=== PATIENT | male | born 1980 | race Two or more races ===

== ENCOUNTER 2020-05-03 16:36 | Inpatient (IN) | payer SELFPAY ==
[2020-05-03 17:50] LABS: HEMOGLOBIN A1C 11.1 % (4.5-6.2)
--- NOTE | 2020-05-03 18:00 | EDM.PDOC ---
ED HPI GENERAL MEDICAL PROBLEM - General Chief Complaint: General Stated Complaint: FEELS WEAK Time Seen by Provider: 05/03/20 17:30 Source of Information: Reports: Patient, Provider, Other (Bronc Buster) History Limitations: Reports: Language Barrier - History of Present Illness INITIAL COMMENTS - FREE TEXT/NARRATIVE: 39-year-old male who went through Covid infection 1 month ago, for several weeks has been weak, thirsty, urinating a lot and losing weight. He went into the clinic for an evaluation today and some labs were drawn. He was then sent home, and then called the be told to go to the emergency room because his glucose was high. He has also had some chronic mild intermittent abdominal discomfort. No fevers or chills, no shortness of breath. Onset: Gradual Duration: Week(s): (Symptoms have been for several weeks) Associated Symptoms: Reports: Malaise, Weakness, Other (Polyuria, polydipsia). Denies: Chest Pain - Related Data Allergies Allergy/AdvReac Type Severity Reaction Status Date / Time No Known Allergies Allergy Verified 05/03/20 17:15 Home Meds: Home Meds NK [No Known Home Meds] 05/03/20 [History] Past Medical History - Past Health History Medical/Surgical History: Denies Medical/Surgical History - Infectious Disease History Infectious Disease History: Reports: Other (See Below) Other Infectious Disease History: unknown Social & Family History - Tobacco Use Tobacco Use Status *Q: Never Tobacco User - Recreational Drug Use Recreational Drug Use: No ED ROS GENERAL - Review of Systems Review Of Systems: See Below Constitutional: Reports: Malaise, Weight Loss. Denies: Fever, Chills Respiratory: Denies: Shortness of Breath GI/Abdominal: Reports: Abdominal Pain : Reports: Frequency Skin: Reports: No Symptoms Neurological: Denies: Headache ED EXAM, GENERAL - Physical Exam Exam: See Below Exam Limited By: No Limitations General Appearance: Alert, No Apparent Distress Head: Atraumatic Respiratory/Chest: No Respiratory Distress, Lungs Clear Cardiovascular: Regular Rate, Rhythm GI/Abdominal: Soft, Tender (Does react with some tenderness to palpation diffusely across the abdomen but no significant guarding) Extremities: No: Pedal Edema Neurological: Alert, Oriented Psychiatric: Flat Affect Skin Exam: Warm, Dry Course - Vital Signs Last Recorded V/S: Last Vital Signs Temp 100.0 F 05/05/20 03:00 Pulse 67 05/05/20 03:00 Resp 18 05/05/20 03:00 BP 113/70 05/05/20 03:00 Pulse Ox 98 05/05/20 03:00 - Orders/Labs/Meds Orders: Medication Orders Acetaminophen (Tylenol) 650 mg PO Q4H PRN PRN Reason: Pain (Mild 1-3)/fever Dextrose/Water (Dextrose 50% In Water) 50 ml IVPUSH ASDIRECTED PRN PRN Reason: Hypoglycemia Glipizide (Glucotrol) 10 mg PO BIDAC [facility] Last Admin: 05/04/20 17:42 Dose: 10 mg Documented by: JOANIE Glucagon (Glucagen) 1 mg IM ASDIRECTED PRN PRN Reason: Hypoglycemia Glucagon (Glucagen) 1 mg IM ASDIRECTED PRN PRN Reason: Hypoglycemia Insulin Human Lispro (Humalog) 0 unit SUBCUT QIDACANDBED [facility]; Protocol Last Admin: 05/04/20 21:45 Dose: 9 units Documented by: BUCK Cosigned by: YOUSUF Admin: 05/04/20 17:42 Dose: 9 units Documented by: JOANIE Cosigned by: JHOANA Admin: 05/04/20 12:05 Dose: 15 units Documented by: JOANIE Cosigned by: LUIS ARMANDO Magnesium Hydroxide (Milk Of Magnesia) 30 ml PO Q12H PRN PRN Reason: Constipation Melatonin (Melatonin) 9 mg PO BEDTIME PRN PRN Reason: Sleep [facility] Last Admin: 05/04/20 17:41 Dose: 1,000 mg Documented by: JOANIE Ondansetron HCl (Zofran) 4 mg IV Q6H PRN PRN Reason: Nausea/Vomiting Ondansetron HCl (Zofran Odt) 4 mg PO Q6H PRN PRN Reason: Nausea able to take PO Senna/Docusate Sodium (Senna Plus) 1 tab PO BID PRN PRN Reason: Constipation Labs: Laboratory Tests 05/03/20 Range/Units 17:24 Hemoglobin A1c 11.1 H (4.5-6.2) % Meds: Medications Generic Name Dose Route Start Last Admin Trade Name Freq PRN Reason Stop Dose Admin Acetaminophen 650 mg 05/03/20 19:19 Tylenol PO Q4H PRN Pain (Mild 1-3)/fever Dextrose/Water 50 ml 05/03/20 21:22 Dextrose 50% In Water IVPUSH ASDIRECTED PRN Hypoglycemia Glipizide 10 mg 05/04/20 17:00 05/04/20 17:42 Glucotrol PO 10 mg BIDAC MEGHANA Administration Glucagon 1 mg 05/03/20 21:22 Glucagen IM ASDIRECTED PRN Hypoglycemia Glucagon 1 mg 05/04/20 06:11 Glucagen IM ASDIRECTED PRN Hypoglycemia Insulin Human Lispro 0 unit 05/04/20 17:00 05/04/20 21:45 Humalog SUBCUT 9 units QIDACANDBED MEGHANA Administration Protocol Magnesium Hydroxide 30 ml 05/03/20 19:19 Milk Of Magnesia PO Q12H PRN Constipation Melatonin 9 mg 05/03/20 19:19 Melatonin PO BEDTIME PRN Sleep Metformin HCl 1,000 mg 05/04/20 17:00 05/04/20 17:41 Glucophage PO 1,000 mg BIDMEALS MEGHANA Administration Ondansetron HCl 4 mg 05/03/20 19:19 Zofran IV Q6H PRN Nausea/Vomiting Ondansetron HCl 4 mg 05/03/20 19:19 Zofran Odt PO Q6H PRN Nausea able to take PO Senna/Docusate Sodium 1 tab 05/03/20 19:19 Senna Plus PO BID PRN Constipation Discontinued Medications Generic Name Dose Route Start Last Admin Trade Name Freq PRN Reason Stop Dose Admin Dextrose/Water 50 ml 05/03/20 18:10 Dextrose 50% In Water IVPUSH ASDIRECTED PRN Hypoglycemia Glucagon 1 mg 05/03/20 18:10 Glucagen IM ASDIRECTED PRN Hypoglycemia Sodium Chloride 1,000 mls @ 999 mls/hr 05/03/20 18:15 05/03/20 18:29 Normal Saline IV 05/03/20 19:16 999 mls/hr ASDIRECTED MEGHANA Administration Sodium Chloride 1,000 mls @ 100 mls/hr 05/03/20 19:19 05/04/20 02:35 Normal Saline IV 100 mls/hr ASDIRECTED MEGHANA Administration Insulin Glargine 14 units 05/03/20 21:00 05/03/20 21:39 Lantus Solostar SUBCUT 14 units BEDTIME MEGHANA Administration Insulin Human Lispro 10 unit 05/03/20 18:10 05/03/20 18:51 Humalog SUBCUT 05/03/20 18:11 10 units ONETIME ONE Administration Insulin Human Lispro 0 unit 05/03/20 20:00 05/04/20 13:53 Humalog SUBCUT Not Given QIDACANDBED [facility] Protocol Insulin Human Lispro 8 unit 05/03/20 21:22 05/03/20 21:40 Humalog SUBCUT 05/03/20 21:23 8 units ONETIME ONE Administration Insulin Human Lispro 10 unit 05/04/20 06:11 05/04/20 06:46 Humalog SUBCUT 05/04/20 06:12 10 units ONETIME ONE Administration Metformin HCl 500 mg 05/04/20 08:00 05/04/20 09:36 Glucophage PO 500 mg BIDMEALS [facility] Administration - Re-Assessments/Exams Free Text/Narrative Re-Assessment/Exam: 05/03/20 17:58 Reviewed the clinic records, hemoglobin A1c was added after talking with the hospitalist service. This returned at 11.1, with his glucose being at 711 I think hospitalization for 1 to 2 days for stabilization and further evaluation and education is necessary. Dr. Vazquez of the hospitalist service evaluated the patient for admission. Departure - Departure Time of Disposition: 19:49 Disposition: Admitted As Inpatient 65 Clinical Impression: New onset type 2 diabetes mellitus - Discharge Information Sepsis Event Note (ED) - Evaluation Sepsis Screening Result: No Definite Risk
[2020-05-03] MEDS ORDERED: Glucagon,Human Recombinant 1 MG Vial IM PRN ×2 (18:10→21:22)
[2020-05-03] MEDS ORDERED: 50% Dextrose in Water 50 ML Syringe IVPUSH PRN ×2 (18:10→21:22)
[2020-05-03] MEDS ORDERED: Insulin Lispro 100 Unit/ML 3 ML KwikPen SUBCUT ONE ×2 (18:10→21:22)
[2020-05-03] MEDS ORDERED: Sodium Chloride 0.9% 1,000 ML IV SCH ×2 (18:15→19:19)
--- NOTE | 2020-05-03 18:26 | PCM.HP.2 ---
H&P History of Present Illness - General Date of Service: 05/03/20 Admit Problem/Dx: Admission Diagnosis/Problem Admission Diagnosis/Problem Hyperglycemia without ketosis Source of Information: Professor Of Engineering, Provider History Limitations: Reports: Language Barrier - History of Present Illness Initial Comments - Free Text/Narative: CC: sent from clinic HPI: Deny was sent to the emergency room by Dr. Armas from the clinic. She had seen him earlier in the day for weight loss, polyuria and polydipsia. He went home after the visit but laboratory studies showed a blood glucose greater than 700. He is interviewed with the help of a friend who is interpreting. He reports about 6 weeks of progressive weight loss, polyuria and polydipsia. He has been fatigued. Symptoms have progressed steadily over that time period. He does have an appetite but sometimes gets nauseated after he eats. He reports some mild left upper quadrant abdominal pain that is only present when he presses on his abdomen. There is no change with food. This is an achy pain. He has not tried anything to make it better. He did have a Covid infection just prior to onset of symptoms but has recovered from the Covid. No complaints of shortness of breath, chest pain or change in bowel habits. There is no family history of diabetes. He was healthy prior to his Covid infection. Work-up in the clinic revealed a creatinine of 1.5, normal potassium and sodium. Blood sugar was more than 700. His hemoglobin A1c is greater than 11. He will be admitted for management of new onset diabetes with significant symptoms and hyperglycemia. - Related Data Allergies/Adverse Reactions: Allergies Allergy/AdvReac Type Severity Reaction Status Date / Time No Known Allergies Allergy Verified 05/03/20 17:15 Home Medications: Home Meds NK [No Known Home Meds] 05/03/20 [History] Past Medical History - Past Health History Medical/Surgical History: Denies Medical/Surgical History - Infectious Disease History Infectious Disease History: Reports: Other (See Below) Other Infectious Disease History: unknown Social & Family History - Family History Endocrine/Metabolic: Denies: Diabetes, type II - Tobacco Use Tobacco Use Status *Q: Never Tobacco User - Alcohol Use Alcohol Use History: No - Recreational Drug Use Recreational Drug Use: No H&P Review of Systems - Review of Systems: Review Of Systems: See Below Free Text/Narrative: A complete 12 point review of systems was obtained. Pertinent positives and ne gatives are noted in the history of present illness. All other systems were reviewed and were negative except as noted. Obtained through his per diem interpreter friend. Exam - Exam Exam: See Below - Vital Signs Vital Signs: Last Vital Signs Temp 36.4 C 05/03/20 17:08 Pulse 69 05/03/20 17:08 Resp 16 05/03/20 17:08 BP 127/88 05/03/20 17:08 Pulse Ox 97 05/03/20 17:08 Weight: 70.3 kg - Exam Quality Assessment: No: Supplemental Oxygen General: Alert, Cooperative. No: Mild Distress HEENT: Conjunctiva Clear. No: Mucosa Moist & [place] (dry), Scleral Icterus Neck: Supple, Trachea Midline Lungs: Clear to Auscultation, Normal Respiratory Effort Cardiovascular: Regular Rate, Regular Rhythm. No: Systolic Murmur GI/Abdominal Exam: Normal Bowel Sounds, Soft, No Distention, Tender (mild LUQ). No: Guarding Back Exam: Normal Inspection, Full Range of Motion Extremities: No Pedal Edema. No: Increased Warmth Peripheral Pulses: 2+: Dorsalis Pedis (L), Dorsalis Pedis (R) Skin: Warm, Dry. No: Rash Neuro Extensive - Mental Status: Alert, Nl Response to Commands Neuro Extensive - Motor, Sensory, Reflexes: No: Dysarthria, Abnormal Motor, Tremor Psychiatric: Alert, Normal Affect - Patient Data Lab Results Last 24 hrs: Laboratory Results - last 24 hr 05/03/20 Range/Units 17:24 Hemoglobin A1c 11.1 H (4.5-6.2) % Sepsis Event Note - Evaluation Sepsis Screening Result: No Definite Risk - Focused Exam Vital Signs: Vital Signs Temp Pulse Resp BP Pulse Ox 05/03/20 17:08 36.4 C 69 16 127/88 97 *Q Meaningful Use (ADM) - VTE Risk Assess *Q Each Risk Factor Represents 1 Point: None Total Score 1 Point Risk Factors: 0 Each Risk Factor Represents 2 Points: None Total Score 2 Point Risk Factors: 0 Each Risk Factor Represents 3 Points: None Total Score 3 Point Risk Factors: 0 Each Risk Factor Represents 5 Points: None Total Score 5 Point Risk Factors: 0 Venous Thromboembolism Risk Factor Score *Q: 0 - Problem List (1) New onset type 2 diabetes mellitus SNOMED Code(s): 64325829 ICD Code: E11.9 - TYPE 2 DIABETES MELLITUS WITHOUT COMPLICATIONS Status: Acute Current Visit: Yes (2) Acute kidney injury SNOMED Code(s): 41286699, 69183657 ICD Code: N17.9 - ACUTE KIDNEY FAILURE, UNSPECIFIED Status: Acute Current Visit: Yes Problem List Initiated/Reviewed/Updated: Yes Orders Last 24hrs: Active Orders 24 hr Category Date Time Status Patient Status Manage Transfer [TRANSFER] Routine ADT 05/03/20 18:19 Ordered Dextrose 50% in Water Med 05/03/20 18:10 Active 50 ml IVPUSH ASDIRECTED PRN Glucagon,Human Recombinant [GlucaGen] Med 05/03/20 18:10 Active 1 mg IM ASDIRECTED PRN Sodium Chloride 0.9% [Normal Saline] 1,000 ml Med 05/03/20 18:15 Active IV ASDIRECTED Resuscitation Status Routine Resus Stat 05/03/20 18:20 Ordered Medication Orders Dextrose/Water (Dextrose 50% In Water) 50 ml IVPUSH ASDIRECTED PRN PRN Reason: Hypoglycemia Glucagon (Glucagen) 1 mg IM ASDIRECTED PRN PRN Reason: Hypoglycemia Sodium Chloride (Normal Saline) 1,000 mls @ 999 mls/hr IV ASDIRECTED [facility]NA Stop: 05/03/20 19:16 Assessment/Plan Comment:: ASSESSMENT AND PLAN - New onset diabetes mellitus-suspect type 2 diabetes with progression over the last several weeks. No family history of diabetes. Current manifestations include fatigue, polyuria, polydipsia and weight loss. Thyroid studies are pending from the clinic. Hemoglobin A1c is greater than 11 suggesting he would benefit from early initiation of insulin. -10 units of short acting insulin now -Start 14 units of long-acting insulin tonight 0.2 (units/kg) -Medium dose sliding scale until blood sugars are closer to normal -Accu-Cheks 4 times daily -I anticipate outpatient diabetic education since it is the weekend -Patient did receive [place]-language diabetes information to review tonight Acute kidney injury-creatinine of 1.5 and although there is no baseline I would anticipate his baseline creatinine is probably closer to 0.6 or 0.7. I suspect this is related to intravascular volume depletion. -1 L of IV fluids now and gentle fluids overnight -Recheck labs in the morning Maintenance issues - - DVT prophylaxis -mechanical - GI prophylaxis -not indicated - Nutrition -consistent carbohydrates - Merino catheter -not indicated CODE STATUS -full code Admission justification -this patient will be admitted for inpatient services and is medically appropriate meeting medical necessity for inpatient admission as outlined in my documentation. I reasonably expect the patient will require inpatient services that span a period time over 2 midnights. I reasonably expect this patient to be discharged or transferred within 96 hours after admission to the [facility]. Disposition -I would anticipate discharge home after the hospital stay Primary care physician -Dr. Nathalie Vazquez M.D. - Mortality Measure Prognosis:: Good
[2020-05-03] MEDS ORDERED: Melatonin 3 MG Tab PO PRN (19:19)
[2020-05-03] MEDS ORDERED: Ondansetron 4 MG/2 ML SDV IV PRN (19:19)
[2020-05-03] MEDS ORDERED: Magnesium Hydroxide 400 MG/5 ML Susp 30 ML Cup PO PRN (19:19)
[2020-05-03] MEDS ORDERED: Acetaminophen 325 MG Tab PO PRN (19:19)
[2020-05-03] MEDS ORDERED: Ondansetron 4 MG Tab.DIS PO PRN (19:19)
[2020-05-03] MEDS ORDERED: Insulin Glargine,Human Rec. Analog 100 Units/ML 3 ML Pen SUBCUT SCH (21:00)
[2020-05-03] MEDS: Insulin Lispro 100 Unit/ML 3 ML KwikPen SUBCUT SCH (21:23)
[2020-05-04] MEDS ORDERED: Glucagon,Human Recombinant 1 MG Vial IM PRN (06:11)
[2020-05-04] MEDS ORDERED: Insulin Lispro 100 Unit/ML 3 ML KwikPen SUBCUT ONE (06:11)
[2020-05-04] MEDS ORDERED: metFORMIN 500 MG Tab PO SCH (08:00)
[2020-05-04] MEDS: Insulin Lispro 100 Unit/ML 3 ML KwikPen SUBCUT SCH ×5 (09:36→21:45)
--- NOTE | 2020-05-04 11:27 | PCM.PN ---
- General Info Date of Service: 05/04/20 Subjective Update: There were no acute events overnight. Blood sugars remain quite elevated though they are improving. Patient was interviewed through a professional setter machine today. He reports that his upper abdominal pain has improved from yesterday. He was able to eat breakfast without nausea today. We reviewed his diagnosis of diabetes as well as the medications were currently using to lower his blood sugar. The patient does not currently have health insurance so we discussed inexpensive but suboptimal treatment versus more intensive but also more expensive treatment including insulin therapy. The patient is interested in the inexpensive option at this time because of his lack of health insurance. Functional Status: Reports: Pain Controlled, Tolerating Diet - Review of Systems General: Denies: Fever - Patient Data Vitals - Most Recent: Last Vital Signs Temp 36.7 C 05/04/20 10:25 Pulse 72 05/04/20 10:25 Resp 18 05/04/20 10:25 BP 118/74 05/04/20 10:25 Pulse Ox 95 05/04/20 10:25 Weight - Most Recent: 70.76 kg I&O - Last 24 Hours: Intake & Output 05/03/20 05/04/20 05/04/20 22:59 06:59 14:59 Intake Total 450 720 Balance 450 720 Lab Results Last 24 Hours: Laboratory Results - last 24 hr 05/03/20 05/03/20 05/04/20 Range/Units 17:24 21:00 04:10 Sodium 140 (140-148) mmol/L Potassium 4.3 (3.6-5.2) mmol/L Chloride 105 (100-108) mmol/L Carbon Dioxide 25 (21-32) mmol/L Anion Gap 10.0 (5.0-14.0) mmol/L BUN 11 (7-18) mg/dL Creatinine 1.0 (0.8-1.3) mg/dL Est Cr Clr Drug Dosing 79.03 mL/min Estimated GFR (MDRD) > 60 (>60) Glucose 480 H* (74-106) mg/dL POC Glucose 451 H (74-106) MG/DL Hemoglobin A1c 11.1 H (4.5-6.2) % Calcium 8.1 L (8.5-10.1) mg/dL Magnesium 2.0 (1.8-2.4) mg/dL 05/04/20 Range/Units 07:30 Sodium (140-148) mmol/L Potassium (3.6-5.2) mmol/L Chloride (100-108) mmol/L Carbon Dioxide (21-32) mmol/L Anion Gap (5.0-14.0) mmol/L BUN (7-18) mg/dL Creatinine (0.8-1.3) mg/dL Est Cr Clr Drug Dosing mL/min Estimated GFR (MDRD) (>60) Glucose (74-106) mg/dL POC Glucose 368 H (74-106) MG/DL Hemoglobin A1c (4.5-6.2) % Calcium (8.5-10.1) mg/dL Magnesium (1.8-2.4) mg/dL Med Orders - Current: Current Medications Acetaminophen (Tylenol) 650 mg PO Q4H PRN PRN Reason: Pain (Mild 1-3)/fever Dextrose/Water (Dextrose 50% In Water) 50 ml IVPUSH ASDIRECTED PRN PRN Reason: Hypoglycemia Glipizide (Glucotrol) 10 mg PO BIDAC [facility] Glucagon (Glucagen) 1 mg IM ASDIRECTED PRN PRN Reason: Hypoglycemia Glucagon (Glucagen) 1 mg IM ASDIRECTED PRN PRN Reason: Hypoglycemia Insulin Human Lispro (Humalog) 0 unit SUBCUT QIDACANDBED [facility]; Protocol Magnesium Hydroxide (Milk Of Magnesia) 30 ml PO Q12H PRN PRN Reason: Constipation Melatonin (Melatonin) 9 mg PO BEDTIME PRN PRN Reason: Sleep Metformin HCl (Glucophage) 1,000 mg PO BIDMEALS [facility] Ondansetron HCl (Zofran) 4 mg IV Q6H PRN PRN Reason: Nausea/Vomiting Ondansetron HCl (Zofran Odt) 4 mg PO Q6H PRN PRN Reason: Nausea able to take PO Senna/Docusate Sodium (Senna Plus) 1 tab PO BID PRN PRN Reason: Constipation Discontinued Medications Dextrose/Water (Dextrose 50% In Water) 50 ml IVPUSH ASDIRECTED PRN PRN Reason: Hypoglycemia Glucagon (Glucagen) 1 mg IM ASDIRECTED PRN PRN Reason: Hypoglycemia Sodium Chloride (Normal Saline) 1,000 mls @ 999 mls/hr IV ASDIRECTED [facility] Stop: 05/03/20 19:16 Last Admin: 05/03/20 18:29 Dose: 999 mls/hr Documented by: Sodium Chloride (Normal Saline) 1,000 mls @ 100 mls/hr IV ASDIRECTED [facility] Last Admin: 05/04/20 02:35 Dose: 100 mls/hr Documented by: Insulin Glargine (Lantus Solostar) 14 units SUBCUT BEDTIME [facility] Last Admin: 05/03/20 21:39 Dose: 14 units Documented by: Insulin Human Lispro (Humalog) 10 unit SUBCUT ONETIME ONE Stop: 05/03/20 18:11 Last Admin: 05/03/20 18:51 Dose: 10 units Documented by: Insulin Human Lispro (Humalog) 0 unit SUBCUT QIDACANDBED [facility]; Protocol Last Admin: 05/04/20 09:36 Dose: 10 units Documented by: Insulin Human Lispro (Humalog) 8 unit SUBCUT ONETIME ONE Stop: 05/03/20 21:23 Last Admin: 05/03/20 21:40 Dose: 8 units Documented by: Insulin Human Lispro (Humalog) 10 unit SUBCUT ONETIME ONE Stop: 05/04/20 06:12 Last Admin: 05/04/20 06:46 Dose: 10 units Documented by: Metformin HCl (Glucophage) 500 mg PO BIDMEALS [facility] Last Admin: 05/04/20 09:36 Dose: 500 mg Documented by: - Exam Quality Assessment: No: Supplemental Oxygen General: Alert, Cooperative, No Acute Distress Lungs: Normal Respiratory Effort GI/Abdominal Exam: Soft, No Distention Extremities: No Pedal Edema Psy/Mental Status: Alert, Normal Affect Sepsis Event Note - Evaluation Sepsis Screening Result: No Definite Risk - Focused Exam Vital Signs: Vital Signs Temp Pulse Resp BP Pulse Ox 05/04/20 10:25 36.7 C 72 18 118/74 95 05/04/20 07:00 37.2 C 61 18 122/72 95 05/04/20 02:47 36.8 C 66 16 122/80 99 - Problem List & Annotations (1) New onset type 2 diabetes mellitus SNOMED Code(s): 58808835 Code(s): E11.9 - TYPE 2 DIABETES MELLITUS WITHOUT COMPLICATIONS Status: Acute Current Visit: Yes (2) Acute kidney injury SNOMED Code(s): 08979643, 83015536 Code(s): N17.9 - ACUTE KIDNEY FAILURE, UNSPECIFIED Status: Acute Current Visit: Yes - Problem List Review Problem List Initiated/Reviewed/Updated: Yes - My Orders Last 24 Hours: My Active Orders 05/03/20 Dinner Consistent Carbohydrate Diet [DIET] 05/03/20 18:20 Resuscitation Status Routine 05/03/20 19:19 Acetaminophen [TylenoL] 650 mg PO Q4H PRN Docusate Sodium/Sennosides [Senna Plus] 1 tab PO BID PRN Magnesium Hydroxide [Milk of Magnesia] 30 ml PO Q12H PRN Melatonin 9 mg PO BEDTIME PRN Ondansetron [Zofran ODT] 4 mg PO Q6H PRN Ondansetron [Zofran] 4 mg IV Q6H PRN 05/03/20 19:19 Patient Status [ADT] Routine Antiembolic Devices [RC] .Routine Communication Order [RC] PRN Communication Order [RC] PRN Diabetes Education [RC] Click to Edit Intake and Output [RC] QSHIFT Notify Provider Vital Signs [RC] ASDIRECTED Notify Provider [RC] PRN Oxygen Therapy [RC] PRN Up ad Eugenia [RC] ASDIRECTED VTE/DVT Education [RC] Per Unit Routine Vital Signs [RC] Q4H Sequential Compression Device [OM.PC] Routine 05/03/20 21:22 Dextrose 50% in Water 50 ml IVPUSH ASDIRECTED PRN Glucagon,Human Recombinant [GlucaGen] 1 mg IM ASDIRECTED PRN 05/04/20 06:11 Glucagon,Human Recombinant [GlucaGen] 1 mg IM ASDIRECTED PRN 05/04/20 11:26 Convert IV to Saline Lock [OM.PC] Routine 05/04/20 11:30 GLUCOSE POC LAB TO COLLECT JPM [POC] QIDACANDBED 05/04/20 16:30 GLUCOSE POC LAB TO COLLECT JPM [POC] QIDACANDBED 05/04/20 17:00 Insulin Lispro [HumaLOG] See Protocol SUBCUT QIDACANDBED glipiZIDE [Glucotrol] 10 mg PO BIDAC metFORMIN [Glucophage] 1,000 mg PO BIDMEALS 05/04/20 21:00 GLUCOSE POC LAB TO COLLECT JPM [POC] QIDACANDBED 05/05/20 05:00 BASIC METABOLIC PANEL,BMP [CHEM] Timed 05/05/20 07:30 GLUCOSE POC LAB TO COLLECT JPM [POC] QIDACANDBED 05/05/20 11:30 GLUCOSE POC LAB TO COLLECT JPM [POC] QIDACANDBED 05/05/20 16:30 GLUCOSE POC LAB TO COLLECT JPM [POC] QIDACANDBED 05/05/20 21:00 GLUCOSE POC LAB TO COLLECT JPM [POC] QIDACANDBED 05/06/20 07:30 GLUCOSE POC LAB TO COLLECT JPM [POC] QIDACANDBED 05/06/20 11:30 GLUCOSE POC LAB TO COLLECT JPM [POC] QIDACANDBED 05/06/20 16:30 GLUCOSE POC LAB TO COLLECT JPM [POC] QIDACANDBED 05/06/20 21:00 GLUCOSE POC LAB TO COLLECT JPM [POC] QIDACANDBED 05/07/20 07:30 GLUCOSE POC LAB TO COLLECT JPM [POC] QIDACANDBED 05/07/20 11:30 GLUCOSE POC LAB TO COLLECT JPM [POC] QIDACANDBED 05/07/20 16:30 GLUCOSE POC LAB TO COLLECT JPM [POC] QIDACANDBED 05/07/20 21:00 GLUCOSE POC LAB TO COLLECT JPM [POC] QIDACANDBED 05/08/20 07:30 GLUCOSE POC LAB TO COLLECT JPM [POC] QIDACANDBED 05/08/20 11:30 GLUCOSE POC LAB TO COLLECT JPM [POC] QIDACANDBED 05/08/20 16:30 GLUCOSE POC LAB TO COLLECT JPM [POC] QIDACANDBED 05/08/20 21:00 GLUCOSE POC LAB TO COLLECT JPM [POC] QIDACANDBED - Plan Plan:: ASSESSMENT AND PLAN - New onset diabetes mellitus-suspect type 2 diabetes with progression over the last several weeks. Blood sugar is better today but still quite elevated. Patient is interested in inexpensive but suboptimal treatment plan because of lack of insurance and financial situation. Diabetic education will be seeing the patient later today as well. -Start Metformin 1000 mg twice daily with meals -Start glipizide 10 mg twice daily with meals -High-dose sliding scale insulin -Accu-Cheks 4 times daily -diabetic education Acute kidney injury-creatinine of 1.5 at the time of admission and now down to 1. -Saline lock IV -Recheck labs in the morning Maintenance issues - - DVT prophylaxis -mechanical - GI prophylaxis -not indicated - Nutrition -consistent carbohydrates Disposition -I would anticipate discharge home after the hospital stay Primary care physician -Dr. Nathalie Vazquez M.D.
[2020-05-04] MEDS: metFORMIN 500 MG Tab PO SCH (17:41)
[2020-05-04] MEDS: glipiZIDE 5 MG Tab PO SCH (17:42)
[2020-05-05] MEDS: glipiZIDE 5 MG Tab PO SCH (08:20)
[2020-05-05] MEDS: metFORMIN 500 MG Tab PO SCH (08:20)
[2020-05-05] MEDS: Insulin Lispro 100 Unit/ML 3 ML KwikPen SUBCUT SCH ×2 (08:21→11:32)
--- NOTE | 2020-05-05 10:47 | PCM.DCSUM1 ---
Discharge Summary - Hospital Course Brief History: 39-year-old Polish-speaking male with no past medical history other than Covid infection in March of this year who presented with polyuria and polydipsia. He was sent from the clinic for management of new onset diabetes with significant hyperglycemia and acute kidney injury. Diagnosis: Stroke: No - Discharge Data Discharge Date: 05/05/20 Discharge Disposition: Home, Self-Care 01 Condition: Good - Referral to Home Health Primary Care Physician: PCP None - Discharge Diagnosis/Problem(s) (1) New onset type 2 diabetes mellitus SNOMED Code(s): 41837785 ICD Code: E11.9 - TYPE 2 DIABETES MELLITUS WITHOUT COMPLICATIONS Status: Acute (2) Acute kidney injury SNOMED Code(s): 08138001, 57349325 ICD Code: N17.9 - ACUTE KIDNEY FAILURE, UNSPECIFIED Status: Acute - Patient Summary/Data Hospital Course: Deny presented initially to the clinic with polyuria and polydipsia. Routine laboratory studies revealed a blood sugar of more than 700 and acute kidney injury. He was sent to the emergency room for further evaluation. In the emergency room his hemoglobin was noted to be greater than 11. He received some insulin and IV fluids and was admitted to the hospital for management of new onset diabetes. In addition to a high-dose sliding scale insulin we utilized 0.2 units/kg of long-acting insulin. Overnight following admission we did see some improvement in his blood sugars but they still remained elevated in the 400s. Additional boluses of insulin were provided. The patient reported that he did not have any health insurance and would not be able to afford insulin. I felt that the next best route for treatment would be a combination of Metformin and glipizide. We discussed that this was suboptimal but the most affordable route. He he preferred the cheap but suboptimal route. Both of these medications were initiated and he tolerated them well. His blood sugars are down into the 200s at the time of discharge. We have continued to provide additional subcutaneous insulin in the short acting form. Symptomatically he is feeling better. His acute kidney injury has resolved and his creatinine is down to normal. He did meet with the elementary educator the day before discharge and has learned how to use his meter and keep track of his blood sugars. Examples of healthy meal choices were also provided. The patient feels well and is interested in going home at this time. He will be following up in the clinic with elementary educator and primary care. He has a prescription for Metformin, glipizide as well as an insulin meter and test strips. - Patient Instructions Diet: Diabetic Diet Activity: As Tolerated Showering/Bathing: May Shower Other/Special Instructions: 1. You were in the hospital for management of new onset diabetes mellitus. Your condition has been improving with medications to help lower your blood sugar. I do recommend that you continue to take 2 medications after hospital discharge. Please take Metformin 1000 mg twice daily with breakfast and supper. Also please take glipizide 10 mg twice daily with breakfast and supper. Both of these medications help to lower your blood sugar. I would encourage you to follow-up with a elementary educator as soon as possible but hopefully within the next week or 2. You should also establish primary care at the clinic so you can have a physician or advanced practice provider help to monitor your diabetes control. 2. Please check your blood sugars before breakfast and medications every other day. Please record these numbers and bring them to your follow-up appointment. - Discharge Plan *PRESCRIPTION DRUG MONITORING PROGRAM REVIEWED*: Not Applicable *COPY OF PRESCRIPTION DRUG MONITORING REPORT IN PATIENT SHAHID: Not Applicable Prescriptions/Med Rec: glipiZIDE [Glucotrol XL] 10 mg PO BIDAC #60 tab.er metFORMIN HCl [Metformin HCl] 1,000 mg PO BIDAC #60 tablet Home Medications: Home Meds glipiZIDE [Glucotrol XL] 10 mg PO BIDAC #60 tab.er 05/05/20 [Rx] metFORMIN HCl [Metformin HCl] 1,000 mg PO BIDAC #60 tablet 05/05/20 [Rx] Oxygen Therapy Mode: Room Air Patient Handouts: Hypoglycemia, [id number], Diabetes Mellitus and Nutrition, Adult Referrals: PCP,None [Primary Care Provider] - (follow up with elementary educator and primary care in 1 week ) - Discharge Summary/Plan Comment DC Time >30 min.: Yes (45-extensive diabetes education) - Patient Data Vitals - Most Recent: Last Vital Signs Temp 35.8 C L 05/05/20 07:00 Pulse 54 L 05/05/20 07:00 Resp 16 05/05/20 07:00 BP 108/72 05/05/20 07:00 Pulse Ox 98 05/05/20 07:00 Weight - Most Recent: 70.76 kg Lab Results - Last 24 hrs: Laboratory Results - last 24 hr 05/04/20 05/04/20 05/04/20 Range/Units 11:30 16:55 21:00 Sodium (140-148) mmol/L Potassium (3.6-5.2) mmol/L Chloride (100-108) mmol/L Carbon Dioxide (21-32) mmol/L Anion Gap (5.0-14.0) mmol/L BUN (7-18) mg/dL Creatinine (0.8-1.3) mg/dL Est Cr Clr Drug Dosing mL/min Estimated GFR (MDRD) (>60) Glucose (74-106) mg/dL POC Glucose 478 H 278 H 255 H (74-106) MG/DL Calcium (8.5-10.1) mg/dL 05/05/20 05/05/20 Range/Units 05:10 07:30 Sodium 143 (140-148) mmol/L Potassium 3.8 (3.6-5.2) mmol/L Chloride 107 (100-108) mmol/L Carbon Dioxide 28 (21-32) mmol/L Anion Gap 7.8 (5.0-14.0) mmol/L BUN 11 (7-18) mg/dL Creatinine 1.0 (0.8-1.3) mg/dL Est Cr Clr Drug Dosing 79.03 mL/min Estimated GFR (MDRD) > 60 (>60) Glucose 218 H (74-106) mg/dL POC Glucose 271 H (74-106) MG/DL Calcium 8.5 (8.5-10.1) mg/dL Med Orders - Current: Current Medications Acetaminophen (Tylenol) 650 mg PO Q4H PRN PRN Reason: Pain (Mild 1-3)/fever Dextrose/Water (Dextrose 50% In Water) 50 ml IVPUSH ASDIRECTED PRN PRN Reason: Hypoglycemia Glipizide (Glucotrol) 10 mg PO BIDAC [facility] Last Admin: 05/05/20 08:20 Dose: 10 mg Documented by: Glucagon (Glucagen) 1 mg IM ASDIRECTED PRN PRN Reason: Hypoglycemia Glucagon (Glucagen) 1 mg IM ASDIRECTED PRN PRN Reason: Hypoglycemia Insulin Human Lispro (Humalog) 0 unit SUBCUT QIDACANDBED [facility]; Protocol Last Admin: 05/05/20 08:21 Dose: 9 units Documented by: Magnesium Hydroxide (Milk Of Magnesia) 30 ml PO Q12H PRN PRN Reason: Constipation Melatonin (Melatonin) 9 mg PO BEDTIME PRN PRN Reason: Sleep Metformin HCl (Glucophage) 1,000 mg PO BIDMEALS [facility] Last Admin: 05/05/20 08:20 Dose: 1,000 mg Documented by: Ondansetron HCl (Zofran) 4 mg IV Q6H PRN PRN Reason: Nausea/Vomiting Ondansetron HCl (Zofran Odt) 4 mg PO Q6H PRN PRN Reason: Nausea able to take PO Senna/Docusate Sodium (Senna Plus) 1 tab PO BID PRN PRN Reason: Constipation Discontinued Medications Dextrose/Water (Dextrose 50% In Water) 50 ml IVPUSH ASDIRECTED PRN PRN Reason: Hypoglycemia Glucagon (Glucagen) 1 mg IM ASDIRECTED PRN PRN Reason: Hypoglycemia Sodium Chloride (Normal Saline) 1,000 mls @ 999 mls/hr IV ASDIRECTED [facility] Stop: 05/03/20 19:16 Last Admin: 05/03/20 18:29 Dose: 999 mls/hr Documented by: Sodium Chloride (Normal Saline) 1,000 mls @ 100 mls/hr IV ASDIRECTED [facility] Last Admin: 05/04/20 02:35 Dose: 100 mls/hr Documented by: Insulin Glargine (Lantus Solostar) 14 units SUBCUT BEDTIME [facility] Last Admin: 05/03/20 21:39 Dose: 14 units Documented by: Insulin Human Lispro (Humalog) 10 unit SUBCUT ONETIME ONE Stop: 05/03/20 18:11 Last Admin: 05/03/20 18:51 Dose: 10 units Documented by: Insulin Human Lispro (Humalog) 0 unit SUBCUT QIDACANDBED [facility]; Protocol Last Admin: 05/04/20 13:53 Dose: Not Given Documented by: Insulin Human Lispro (Humalog) 8 unit SUBCUT ONETIME ONE Stop: 05/03/20 21:23 Last Admin: 05/03/20 21:40 Dose: 8 units Documented by: Insulin Human Lispro (Humalog) 10 unit SUBCUT ONETIME ONE Stop: 05/04/20 06:12 Last Admin: 05/04/20 06:46 Dose: 10 units Documented by: Metformin HCl (Glucophage) 500 mg PO BIDMEALS [facility] Last Admin: 05/04/20 09:36 Dose: 500 mg Documented by:
== END 2020-05-05 12:38 | disposition home or self-care (01) | DRG 638 ==
LOC: JP.ED 16:36 → JP.MS 18:19
PROVIDERS: ADMIT Internal Medicine; ATTEND Internal Medicine
DX: E11.65 Type 2 diabetes mellitus with hyperglycemia (principal); N17.9 Acute kidney failure, unspecified
CPT/HCPCS: 36415; 80048; 82962; 83036; 83735; 99222-AI; 99231; 99239; 99284; 99285; A9270-GY; J1815; J1815-GY; J7030

== ENCOUNTER 2023-01-12 15:55 | Emergency (ER) | payer SELFPAY ==
[2023-01-12] MEDS ORDERED: Sodium Chloride 0.9% 10 ML Syringe FLUSH PRN (16:06)
[2023-01-12] MEDS ORDERED: Lactated Ringers 1,000 ML IV ONE ×2 (16:06→17:36)
[2023-01-12 16:40] LABS: HEMATOCRIT 39.2 % (38.4-49.7); HEMOGLOBIN 13.7 g/dL (12.9-16.9); MEAN CORPUSCULAR HGB CONC 34.9 g/dL (31.6-35.5); MEAN CORPUSCULAR VOLUME 80.2 fL (81.4-99.0); RED BLOOD CELL COUNT 4.89 M/uL (4.14-5.76); WHITE BLOOD CELL COUNT,WBC 9.8 K/uL (3.2-11.0)
[2023-01-12 16:44] LABS: BASE EXCESS VENOUS 0.3 mm/L; BICARBONATE,VENOUS 24.2 mmol/L; CARBOXYHEMOGLOBIN 2.1 % (0.0-1.6); METHEMOGLOBIN 0.6 %; O2 SATURATION VENOUS 87.4; PCO2 VENOUS 38.8 mm/Hg; PH,VENOUS 7.412 (7.350-7.450); PO2 VENOUS 56.9 mm/Hg; TOTAL HEMOGLOBIN 14.2 g/dL (13.5-18.0)
[2023-01-12 17:07] LABS: A/G RATIO 0.9 (1.2-2.2); ALANINE AMINOTRANSFERASE,ALT 89 U/L (12-78); ALKALINE PHOSPHATASE 182 U/L (46-116); ASPARTATE AMNIOTRANSFERASE,AST 36 U/L (15-37); BILIRUBIN TOTAL 0.9 mg/dL (0.2-1.0); BLOOD UREA NITROGEN,BUN 16 mg/dL (7-18); CARBON DIOXIDE,CO2 26 mmol/L (21-32); CHLORIDE,CL 97 mmol/L (100-108); CREATININE 1.1 mg/dL (0.8-1.3); EST CRCL DRUG DOSING (CG) 69.69 mL/min; ESTIMATED GFR 85 mL/min (>60); POTASSIUM,K 3.9 mmol/L (3.6-5.2); PROTEIN TOTAL,TP 8.3 g/dL (6.4-8.2); SODIUM,NA 134 mmol/L (140-148)
[2023-01-12 17:09] LABS: ANION GAP 14.9 mmol/L (5.0-14.0)
[2023-01-12 17:10] LABS: APPEARANCE,URINE CLEAR (CLEAR); BILIRUBIN,URINE NEGATIVE (NEGATIVE); COLOR,URINE YELLOW (YELLOW); GLUCOSE,URINE 500 mg/dL (NEGATIVE); KETONES,URINE 15 mg/dL (NEGATIVE); LEUKOCYTE ESTERASE,URINE NEGATIVE (NEGATIVE); NITRITE,URINE NEGATIVE (NEGATIVE); OCCULT BLOOD,URINE TRACE-INTACT (NEGATIVE); PH,URINE 5.5 (5.0-8.0); PROTEIN,URINE NEGATIVE (NEGATIVE); UROBILINOGEN,URINE 0.2 EU/dL (0.2-1.0)
[2023-01-12 17:10] LABS: GLUCOSE RANDOM 541 mg/dL (74-106)
[2023-01-12 17:17] LABS: AMORPHOUS SEDIMENT,URINE NOT SEEN; BACTERIA,URINE RARE; EPITHELIAL CELLS,URINE RARE; MUCUS,URINE NOT SEEN; RBC,URINE 0-5 (0-5); WBC,URINE 0-5 (0-5)
== END 2023-01-12 19:58 | disposition home or self-care (01) ==
LOC: JP.ED 15:55
DX: E16.2 Hypoglycemia, unspecified (principal); Z79.899 Other long term (current) drug therapy
CPT/HCPCS: 36415; 80053; 81001; 82009; 82803; 83605; 83690; 85027; 96360; 96361; 99284; J7120

== ENCOUNTER → 2023-03-09 | Day surgery (SDC) | payer OTHER ==
[~2023-03-09] MED LIST: Midazolam 1 MG/ML 2 ML SDV ONE; Propofol 200 MG/20 ML SDV ONE; Sodium Chloride 0.9% 10 ML Syringe FLUSH PRN; fentaNYL 100 MCG/2 ML SDV ONE
[2023-03-09] MEDS: HYDROmorphone 0.5 MG/0.5 ML Syringe IM ONE (11:41)
[2023-03-09] MEDS: Diphtheria,Pertussis(Acell),Tetanus Vaccine 0.5 ML Syringe IM ONE (11:43)
[2023-03-09 12:55] LABS: EOSINOPHILS ABSOLUTE AUTO 0.14 K/uL (0.00-0.40); EOSINOPHILS PERCENT AUTO 1.4 % (0.0-5.4); HEMATOCRIT 40.7 % (38.4-49.7); HEMOGLOBIN 13.7 g/dL (12.9-16.9); IMMATURE GRAN ABSOLUTE AUTO 0.37 K/uL (0.00-0.23); IMMATURE GRAN PERCENT AUTO 3.6 % (0.0-0.7); LYMPHOCYTES ABSOLUTE AUTO 2.82 K/uL (0.8-3.3); LYMPHOCYTES PERCENT AUTO 27.5 % (11.4-47.7); MEAN CORPUSCULAR HEMOGLOBIN 28.2 pg (31.6-35.5); MEAN CORPUSCULAR HGB CONC 33.7 g/dL (31.6-35.5); MEAN CORPUSCULAR VOLUME 83.7 fL (81.4-99.0); MONOCYTES ABSOLUTE AUTO 0.66 K/uL (0.20-0.90); MONOCYTES PERCENT AUTO 6.4 % (3.3-12.6); NEUTROPHILS ABSOLUTE AUTO 6.16 K/uL (1.0-7.6); NEUTROPHILS PERCENT AUTO 60.1 % (40.0-78.1); PLATELET COUNT,PLT 364 K/uL (130-375); RED BLOOD CELL COUNT 4.86 M/uL (4.14-5.76); WHITE BLOOD CELL COUNT,WBC 10.3 K/uL (3.2-11.0)
[2023-03-09 13:14] LABS: A/G RATIO 0.8 (1.2-2.2); ALANINE AMINOTRANSFERASE,ALT 59 U/L (12-78); ALBUMIN 3.6 g/dL (3.4-5.0); ALKALINE PHOSPHATASE 123 U/L (46-116); ANION GAP 10.5 mmol/L (5.0-14.0); ASPARTATE AMNIOTRANSFERASE,AST 33 U/L (15-37); BILIRUBIN TOTAL 0.3 mg/dL (0.2-1.0); BLOOD UREA NITROGEN,BUN 4 mg/dL (7-18); CALCIUM 8.6 mg/dL (8.5-10.1); CARBON DIOXIDE,CO2 29 mmol/L (21-32); CHLORIDE,CL 102 mmol/L (100-108); CREATININE 0.9 mg/dL (0.8-1.3); EST CRCL DRUG DOSING (CG) 88.62 mL/min; ESTIMATED GFR 109 mL/min (>60); GLUCOSE RANDOM 152 mg/dL (74-106); POTASSIUM,K 3.5 mmol/L (3.6-5.2); PROTEIN TOTAL,TP 8.1 g/dL (6.4-8.2); SODIUM,NA 138 mmol/L (140-148)
[2023-03-09] MEDS: HYDROmorphone 0.5 MG/0.5 ML Syringe IVPUSH ONE (15:31)
[2023-03-09] MEDS: ceFAZolin 1 GM in Premix Bag 1 BAG IV ONE (16:10)
[2023-03-09] MEDS: Bupivacaine 0.5% 50 ML MDV ONE (16:37)
== END ==
LOC: JP.ED 10:32 → JP.SDS 14:43
PROVIDERS: ATTEND Specialist
DX: S62.636B Displaced fracture of distal phalanx of right little finger, initial encounter for open fracture (principal); S67.196A Crushing injury of right little finger, initial encounter; E11.9 Type 2 diabetes mellitus without complications; Z20.822 Contact with and (suspected) exposure to COVID-19; Z79.84 Long term (current) use of oral hypoglycemic drugs; Z23 Encounter for immunization
CPT/HCPCS: 36415; 73140-26-F9; 73140-F9; 80053; 85025; 90471; 90715; 96365; 96372; 96375; 99284; 99284-25; J0690; J1170; J2250; J2704; J3010; J3490; U0002

== ENCOUNTER 2024-01-15 17:22 | Emergency (ER) | payer SELFPAY ==
[2024-01-15 18:25] LABS: BASOPHILS ABSOLUTE AUTO 0.03 K/uL (0.00-0.10); BASOPHILS PERCENT AUTO 0.3 % (0.1-1.3); EOSINOPHILS ABSOLUTE AUTO 0.11 K/uL (0.00-0.40); EOSINOPHILS PERCENT AUTO 1.2 % (0.0-5.4); HEMATOCRIT 38.3 % (38.4-49.7); HEMOGLOBIN 13.8 g/dL (12.9-16.9); IMMATURE GRAN ABSOLUTE AUTO 0.03 K/uL (0.00-0.23); IMMATURE GRAN PERCENT AUTO 0.3 % (0.0-0.7); LYMPHOCYTES ABSOLUTE AUTO 2.55 K/uL (0.8-3.3); LYMPHOCYTES PERCENT AUTO 28.6 % (11.4-47.7); MEAN CORPUSCULAR HEMOGLOBIN 29.2 pg (31.6-35.5); MEAN CORPUSCULAR VOLUME 81.1 fL (81.4-99.0); MONOCYTES ABSOLUTE AUTO 0.58 K/uL (0.20-0.90); MONOCYTES PERCENT AUTO 6.5 % (3.3-12.6); NEUTROPHILS ABSOLUTE AUTO 5.63 K/uL (1.0-7.6); NEUTROPHILS PERCENT AUTO 63.1 % (40.0-78.1); PLATELET COUNT,PLT 216 K/uL (130-375); RED BLOOD CELL COUNT 4.72 M/uL (4.14-5.76); WHITE BLOOD CELL COUNT,WBC 8.9 K/uL (3.2-11.0)
[2024-01-15 18:32] LABS: APPEARANCE,URINE CLEAR (CLEAR); BILIRUBIN,URINE NEGATIVE (NEGATIVE); COLOR,URINE YELLOW (YELLOW); GLUCOSE,URINE 500 mg/dL (NEGATIVE); KETONES,URINE 40 mg/dL (NEGATIVE); LEUKOCYTE ESTERASE,URINE NEGATIVE (NEGATIVE); NITRITE,URINE NEGATIVE (NEGATIVE); OCCULT BLOOD,URINE NEGATIVE (NEGATIVE); PH,URINE 5.5 (5.0-8.0); PROTEIN,URINE NEGATIVE (NEGATIVE); UROBILINOGEN,URINE 0.2 EU/dL (0.2-1.0)
[2024-01-15 18:39] LABS: AMORPHOUS SEDIMENT,URINE NOT SEEN; BACTERIA,URINE RARE; EPITHELIAL CELLS,URINE NOT SEEN; MUCUS,URINE NOT SEEN; RBC,URINE 0-5 (0-5); WBC,URINE 0-5 (0-5)
[2024-01-15 18:46] LABS: ALBUMIN 3.7 g/dL (3.4-5.0); ANION GAP 14.9 mmol/L (5.0-14.0); BILIRUBIN DIRECT 0.11 mg/dL (0.0-0.2); BILIRUBIN INDIRECT 0.29; BILIRUBIN TOTAL 0.4 mg/dL (0.2-1.0); CALCIUM 9.4 mg/dL (8.5-10.1); CREATININE 0.8 mg/dL (0.8-1.3); EST CRCL DRUG DOSING (CG) 94.83 mL/min; POTASSIUM,K 3.9 mmol/L (3.6-5.2); PROTEIN TOTAL,TP 7.4 g/dL (6.4-8.2)
[2024-01-15 18:51] LABS: LACTIC ACID 1.1 mmol/L (0.4-2.0)
[2024-01-15] MEDS: Sodium Chloride 0.9% 1,000 ML IV SCH (19:50)
[2024-01-15] MEDS: Ondansetron 4 MG Tab.DIS PO ONE (20:57)
== END 2024-01-15 21:28 | disposition home or self-care (01) ==
LOC: JP.ED 17:22
DX: E86.0 Dehydration (principal); E11.65 Type 2 diabetes mellitus with hyperglycemia; Z86.16 Personal history of COVID-19; Z79.84 Long term (current) use of oral hypoglycemic drugs
CPT/HCPCS: 36415; 80048; 80076; 81001; 82009; 83605; 83690; 85025; 96360; 99284; J7030

== ENCOUNTER 2024-06-04 00:28 | Inpatient (IN) | payer OTHER ==
[2024-06-04] MEDS: Sodium Chloride 0.9% 10 ML Syringe FLUSH PRN (01:36)
[2024-06-04 01:37] LABS: BASOPHILS ABSOLUTE AUTO 0.04 K/uL (0.00-0.10); BASOPHILS PERCENT AUTO 0.6 % (0.1-1.3); EOSINOPHILS ABSOLUTE AUTO 0.03 K/uL (0.00-0.40); EOSINOPHILS PERCENT AUTO 0.5 % (0.0-5.4); HEMATOCRIT 36.8 % (38.4-49.7); HEMOGLOBIN 12.9 g/dL (12.9-16.9); IMMATURE GRAN ABSOLUTE AUTO 0.04 K/uL (0.00-0.23); IMMATURE GRAN PERCENT AUTO 0.6 % (0.0-0.7); LYMPHOCYTES ABSOLUTE AUTO 2.58 K/uL (0.8-3.3); LYMPHOCYTES PERCENT AUTO 39.3 % (11.4-47.7); MEAN CORPUSCULAR HEMOGLOBIN 30.4 pg (31.6-35.5); MEAN CORPUSCULAR HGB CONC 35.1 g/dL (31.6-35.5); MEAN CORPUSCULAR VOLUME 86.8 fL (81.4-99.0); MONOCYTES ABSOLUTE AUTO 0.39 K/uL (0.20-0.90); MONOCYTES PERCENT AUTO 5.9 % (3.3-12.6); NEUTROPHILS ABSOLUTE AUTO 3.48 K/uL (1.0-7.6); NEUTROPHILS PERCENT AUTO 53.1 % (40.0-78.1); PLATELET COUNT,PLT 287 K/uL (130-375); RED BLOOD CELL COUNT 4.24 M/uL (4.14-5.76); WHITE BLOOD CELL COUNT,WBC 6.6 K/uL (3.2-11.0)
[2024-06-04 02:07] LABS: APPEARANCE,URINE CLEAR (CLEAR); BILIRUBIN,URINE NEGATIVE (NEGATIVE); COLOR,URINE YELLOW (YELLOW); GLUCOSE,URINE 500 mg/dL (NEGATIVE); KETONES,URINE 80 mg/dL (NEGATIVE); LEUKOCYTE ESTERASE,URINE NEGATIVE (NEGATIVE); NITRITE,URINE NEGATIVE (NEGATIVE); OCCULT BLOOD,URINE NEGATIVE (NEGATIVE); PH,URINE 5.5 (5.0-8.0); PROTEIN,URINE NEGATIVE (NEGATIVE); UROBILINOGEN,URINE 0.2 EU/dL (0.2-1.0)
[2024-06-04 02:09] LABS: A/G RATIO 0.9 (1.2-2.2); ALANINE AMINOTRANSFERASE,ALT 41 U/L (12-78); ALBUMIN 3.2 g/dL (3.4-5.0); ALKALINE PHOSPHATASE 182 U/L (46-116); ANION GAP 25.2 mmol/L (5.0-14.0); ASPARTATE AMNIOTRANSFERASE,AST 20 U/L (15-37); BILIRUBIN TOTAL 0.5 mg/dL (0.2-1.0); BLOOD UREA NITROGEN,BUN 19 mg/dL (7-18); CALCIUM 8.6 mg/dL (8.5-10.1); CARBON DIOXIDE,CO2 17 mmol/L (21-32); CHLORIDE,CL 90 mmol/L (100-108); ESTIMATED GFR 95 mL/min (>60); POTASSIUM,K 4.2 mmol/L (3.6-5.2); PROTEIN TOTAL,TP 6.9 g/dL (6.4-8.2); PSA SCREEN 0.3 ug/L (0.0-4.0); SODIUM,NA 128 mmol/L (140-148)
[2024-06-04 02:10] LABS: GLUCOSE RANDOM 504 mg/dL (74-106)
[2024-06-04 02:14] LABS: AMORPHOUS SEDIMENT,URINE NOT SEEN; BACTERIA,URINE RARE; EPITHELIAL CELLS,URINE NOT SEEN; MUCUS,URINE NOT SEEN; RBC,URINE 0-5 (0-5); WBC,URINE 0-5 (0-5)
[2024-06-04] MEDS: Lactated Ringers 1,000 ML IV SCH (02:34)
[2024-06-04] MEDS ORDERED: 50% Dextrose in Water 50 ML Syringe IVPUSH PRN (02:37)
[2024-06-04] MEDS ORDERED: Glucagon,Human Recombinant 1 MG Vial IM PRN ×2 (02:37→07:32)
[2024-06-04] MEDS: Magnesium Sulfate/Water Premix 2 GM in Premix Bag 1 BAG IV ONE (03:00)
[2024-06-04] MEDS: Insulin Regular, Human 100 Units/ML 3 ML Vial IVPUSH ONE ×2 (03:02→03:47)
[2024-06-04 04:57] LABS: A/G RATIO 0.9 (1.2-2.2); ALANINE AMINOTRANSFERASE,ALT 34 U/L (12-78); ALBUMIN 2.7 g/dL (3.4-5.0); ALKALINE PHOSPHATASE 137 U/L (46-116); ASPARTATE AMNIOTRANSFERASE,AST 16 U/L (15-37); BILIRUBIN TOTAL 0.4 mg/dL (0.2-1.0); BLOOD UREA NITROGEN,BUN 16 mg/dL (7-18); CARBON DIOXIDE,CO2 23 mmol/L (21-32); CHLORIDE,CL 97 mmol/L (100-108); CREATININE 0.9 mg/dL (0.8-1.3); ESTIMATED GFR 108 mL/min (>60); GLUCOSE RANDOM 328 mg/dL (74-106); POTASSIUM,K 3.5 mmol/L (3.6-5.2); PROTEIN TOTAL,TP 5.8 g/dL (6.4-8.2); SODIUM,NA 133 mmol/L (140-148)
[2024-06-04 05:03] LABS: ANION GAP 16.5 mmol/L (5.0-14.0)
[2024-06-04 05:49] LABS: HEMOGLOBIN A1C > 14.0 % (4.5-6.2)
[2024-06-04] MEDS ORDERED: Glucose Gel 15 GM in 37.5 GM Tube PO PRN (07:33)
[2024-06-04] MEDS ORDERED: 50% Dextrose in Water 50 ML Syringe IV PRN (07:33)
[2024-06-04] MEDS: Potassium Chloride 20 MEQ Tab.ER PO ONE (07:50)
[2024-06-04] MEDS: Insulin Glargine,Human Rec. Analog 100 Units/ML 3 ML Pen SUBCUT SCH (07:50)
[2024-06-04] MEDS ORDERED: Ondansetron 4 MG/2 ML SDV IV PRN (09:11)
[2024-06-04] MEDS ORDERED: Sodium Chloride 0.9% 10 ML Syringe FLUSH PRN (09:11)
[2024-06-04] MEDS ORDERED: Polyethylene Glycol 3350 Powder 17 GM Packet PO PRN (09:11)
[2024-06-04] MEDS ORDERED: Acetaminophen 325 MG Tab PO PRN (09:11)
[2024-06-04] MEDS: Sodium Chloride 0.9% 1,000 ML IV SCH (10:47)
[2024-06-04] MEDS: Magnesium Oxide 400 MG Tab PO SCH (10:47)
[2024-06-04] MEDS: Insulin Lispro 100 Unit/ML 3 ML KwikPen SUBCUT SCH (11:50)
[2024-06-04 11:59] LABS: CREATININE 0.9 mg/dL (0.8-1.3); EST CRCL DRUG DOSING (CG) 70.89 mL/min; POTASSIUM,K 4.4 mmol/L (3.6-5.2)
[2024-06-04 12:00] LABS: ANION GAP 17.4 mmol/L (5.0-14.0)
[2024-06-04 18:24] LABS: CALCIUM 8.2 mg/dL (8.5-10.1); EST CRCL DRUG DOSING (CG) 63.81 mL/min; MAGNESIUM 1.5 mg/dL (1.8-2.4); POTASSIUM,K 3.7 mmol/L (3.6-5.2)
[2024-06-04 18:26] LABS: ANION GAP 15.7 mmol/L (5.0-14.0)
[2024-06-05 05:50] LABS: CALCIUM 7.7 mg/dL (8.5-10.1); CREATININE 0.7 mg/dL (0.8-1.3); EST CRCL DRUG DOSING (CG) 93.31 mL/min; MAGNESIUM 1.4 mg/dL (1.8-2.4); POTASSIUM,K 3.5 mmol/L (3.6-5.2)
[2024-06-05 06:14] LABS: ANION GAP 12.5 mmol/L (5.0-14.0)
[2024-06-06 05:45] LABS: HEMATOCRIT 30.3 % (38.4-49.7); HEMOGLOBIN 10.7 g/dL (12.9-16.9); MEAN CORPUSCULAR HEMOGLOBIN 30.9 pg (31.6-35.5); MEAN CORPUSCULAR HGB CONC 35.3 g/dL (31.6-35.5); MEAN CORPUSCULAR VOLUME 87.6 fL (81.4-99.0); RED BLOOD CELL COUNT 3.46 M/uL (4.14-5.76); WHITE BLOOD CELL COUNT,WBC 5.9 K/uL (3.2-11.0)
[2024-06-06 06:10] LABS: ALBUMIN 2.2 g/dL (3.4-5.0); BLOOD UREA NITROGEN,BUN 12 mg/dL (7-18); CALCIUM 8.1 mg/dL (8.5-10.1); CARBON DIOXIDE,CO2 27 mmol/L (21-32); CHLORIDE,CL 99 mmol/L (100-108); CREATININE 0.5 mg/dL (0.8-1.3); EST CRCL DRUG DOSING (CG) 130.63 mL/min; ESTIMATED GFR 129 mL/min (>60); GLUCOSE RANDOM 314 mg/dL (74-106); MAGNESIUM 1.5 mg/dL (1.8-2.4); PHOSPHORUS 3.5 mg/dL (2.5-4.9); POTASSIUM,K 3.5 mmol/L (3.6-5.2); SODIUM,NA 134 mmol/L (140-148)
[2024-06-06 06:12] LABS: ANION GAP 11.5 mmol/L (5.0-14.0)
[2024-06-06] MEDS: Insulin Glargine,Human Rec. Analog 100 Units/ML 3 ML Pen SUBCUT ONE (10:45)
[2024-06-07 05:49] LABS: HEMATOCRIT 30.8 % (38.4-49.7); HEMOGLOBIN 10.7 g/dL (12.9-16.9); MEAN CORPUSCULAR HEMOGLOBIN 30.7 pg (31.6-35.5); MEAN CORPUSCULAR HGB CONC 34.7 g/dL (31.6-35.5); MEAN CORPUSCULAR VOLUME 88.3 fL (81.4-99.0); RED BLOOD CELL COUNT 3.49 M/uL (4.14-5.76); WHITE BLOOD CELL COUNT,WBC 5.8 K/uL (3.2-11.0)
[2024-06-07 06:02] LABS: ALBUMIN 2.2 g/dL (3.4-5.0); BLOOD UREA NITROGEN,BUN 12 mg/dL (7-18); CALCIUM 7.9 mg/dL (8.5-10.1); CARBON DIOXIDE,CO2 28 mmol/L (21-32); CHLORIDE,CL 100 mmol/L (100-108); CREATININE 0.5 mg/dL (0.8-1.3); EST CRCL DRUG DOSING (CG) 131.48 mL/min; ESTIMATED GFR 129 mL/min (>60); GLUCOSE RANDOM 333 mg/dL (74-106); PHOSPHORUS 4.2 mg/dL (2.5-4.9); SODIUM,NA 134 mmol/L (140-148)
[2024-06-07] MEDS: Insulin Glargine,Human Rec. Analog 100 Units/ML 3 ML Pen SUBCUT SCH (08:40)
== END 2024-06-07 13:36 | disposition home health service (06) | DRG 638 ==
LOC: JP.ED 00:28 → JP.MS 07:36
PROVIDERS: ADMIT Hospitalist; ATTEND Hospitalist
DX: E11.65 Type 2 diabetes mellitus with hyperglycemia (principal); E87.1 Hypo-osmolality and hyponatremia; Z68.1 Body mass index [BMI] 19.9 or less, adult; R63.1 Polydipsia; F17.210 Nicotine dependence, cigarettes, uncomplicated; R63.0 Anorexia; R35.89 Other polyuria; E87.6 Hypokalemia; E88.09 Other disorders of plasma-protein metabolism, not elsewhere classified; Z79.84 Long term (current) use of oral hypoglycemic drugs; Z98.890 Other specified postprocedural states; Z89.021 Acquired absence of right finger(s)
CPT/HCPCS: 36415; 80048; 80053; 80069; 81001; 82800; 82947; 83036; 83735; 85025; 85027; 86140; 96365; 99222; 99232; 99239; 99284-25; 99285; A9270-GY; G0103; J1815; J1815-GY; J3475; J7030; J7120

== ENCOUNTER 2024-06-16 14:23 | Inpatient (IN) | payer OTHER ==
[2024-06-16 15:57] LABS: BASOPHILS PERCENT AUTO 0.2 % (0.1-1.3); EOSINOPHILS PERCENT AUTO 0.2 % (0.0-5.4); HEMATOCRIT 35.2 % (38.4-49.7); HEMOGLOBIN 12.1 g/dL (12.9-16.9); IMMATURE GRAN ABSOLUTE AUTO 0.03 K/uL (0.00-0.23); IMMATURE GRAN PERCENT AUTO 0.5 % (0.0-0.7); LYMPHOCYTES ABSOLUTE AUTO 1.28 K/uL (0.8-3.3); LYMPHOCYTES PERCENT AUTO 23.4 % (11.4-47.7); MEAN CORPUSCULAR HEMOGLOBIN 30.6 pg (31.6-35.5); MEAN CORPUSCULAR HGB CONC 34.4 g/dL (31.6-35.5); MEAN CORPUSCULAR VOLUME 89.1 fL (81.4-99.0); MONOCYTES ABSOLUTE AUTO 0.33 K/uL (0.20-0.90); NEUTROPHILS ABSOLUTE AUTO 3.81 K/uL (1.0-7.6); NEUTROPHILS PERCENT AUTO 69.7 % (40.0-78.1); PLATELET COUNT,PLT 298 K/uL (130-375); RED BLOOD CELL COUNT 3.95 M/uL (4.14-5.76); WHITE BLOOD CELL COUNT,WBC 5.5 K/uL (3.2-11.0)
[2024-06-16 15:58] LABS: BASE EXCESS ARTERIAL -1.7 mm/L; BICARBONATE,ARTERIAL 22.4 mmol/L (22.0-26.0); CARBOXYHEMOGLOBIN 1.8 % (0.0-1.6); METHEMOGLOBIN 1.2 %; O2 SATURATION ARTERIAL 96.8 % (95.0-98.0); OXYHEMOGLOBIN 93.9 %; PCO2 ARTERIAL 38.1 mmHg (35.0-42.0); PO2 ARTERIAL 90.4 mmHg (75.0-100.0); TOTAL HEMOGLOBIN 12.6 g/dL (13.5-18.0)
[2024-06-16 16:00] LABS: LACTIC ACID 0.5 mmol/L (0.4-2.0)
[2024-06-16 16:02] LABS: BASOPHILS ABSOLUTE AUTO 0.01 K/uL (0.00-0.10); EOSINOPHILS ABSOLUTE AUTO 0.01 K/uL (0.00-0.40)
[2024-06-16 16:19] LABS: A/G RATIO 0.8 (1.2-2.2); ALANINE AMINOTRANSFERASE,ALT 57 U/L (12-78); ALBUMIN 3.1 g/dL (3.4-5.0); ALKALINE PHOSPHATASE 209 U/L (46-116); ASPARTATE AMNIOTRANSFERASE,AST 40 U/L (15-37); BILIRUBIN TOTAL 0.5 mg/dL (0.2-1.0); BLOOD UREA NITROGEN,BUN 14 mg/dL (7-18); CALCIUM 8.8 mg/dL (8.5-10.1); CARBON DIOXIDE,CO2 22 mmol/L (21-32); CHLORIDE,CL 92 mmol/L (100-108); CREATININE 0.8 mg/dL (0.8-1.3); EST CRCL DRUG DOSING (CG) 81.83 mL/min; ESTIMATED GFR 112 mL/min (>60); POTASSIUM,K 4.5 mmol/L (3.6-5.2); PROTEIN TOTAL,TP 6.9 g/dL (6.4-8.2); SODIUM,NA 129 mmol/L (140-148)
[2024-06-16 16:29] LABS: APPEARANCE,URINE CLEAR (CLEAR); BILIRUBIN,URINE NEGATIVE (NEGATIVE); COLOR,URINE YELLOW (YELLOW); GLUCOSE,URINE 500 mg/dL (NEGATIVE); KETONES,URINE 40 mg/dL (NEGATIVE); LEUKOCYTE ESTERASE,URINE NEGATIVE (NEGATIVE); NITRITE,URINE NEGATIVE (NEGATIVE); OCCULT BLOOD,URINE NEGATIVE (NEGATIVE); PROTEIN,URINE NEGATIVE (NEGATIVE); UROBILINOGEN,URINE 0.2 EU/dL (0.2-1.0)
[2024-06-16 16:35] LABS: ANION GAP 19.5 mmol/L (5.0-14.0)
[2024-06-16 16:36] LABS: GLUCOSE RANDOM 726 mg/dL (74-106)
[2024-06-16 16:40] LABS: AMORPHOUS SEDIMENT,URINE NOT SEEN; BACTERIA,URINE NOT SEEN; EPITHELIAL CELLS,URINE RARE; MUCUS,URINE NOT SEEN; RBC,URINE 0-5 (0-5); WBC,URINE 0-5 (0-5)
[2024-06-16] MEDS: Sodium Chloride 0.9% 1,000 ML IV ONE (17:10)
[2024-06-16] MEDS ORDERED: Glucagon,Human Recombinant 1 MG Vial IM PRN (17:39)
[2024-06-16] MEDS ORDERED: Glucose Gel 15 GM in 37.5 GM Tube PO PRN (18:38)
[2024-06-16] MEDS ORDERED: Acetaminophen 325 MG Tab PO PRN (18:38)
[2024-06-16] MEDS ORDERED: Sodium Chloride 0.9% 1,000 ML IV SCH ×2 (18:38)
[2024-06-16] MEDS ORDERED: Sodium Chloride 0.9% 10 ML Syringe FLUSH PRN (18:38)
[2024-06-16] MEDS ORDERED: 50% Dextrose in Water 50 ML Syringe IV PRN (18:38)
[2024-06-16] MEDS ORDERED: Ondansetron 4 MG/2 ML SDV IV PRN (18:38)
[2024-06-16] MEDS ORDERED: Polyethylene Glycol 3350 Powder 17 GM Packet PO PRN (18:38)
[2024-06-16] MEDS: Enoxaparin 40 MG/0.4 ML Syringe SUBCUT SCH (18:55)
[2024-06-16] MEDS: Insulin Glargine,Human Rec. Analog 100 Units/ML 3 ML Pen SUBCUT SCH (18:56)
[2024-06-16] MEDS: Insulin Lispro 100 Unit/ML 3 ML KwikPen SUBCUT SCH (18:56)
[2024-06-16] MEDS: Insulin Regular, Human 100 Units/ML 3 ML Vial IV ONE (19:43)
[2024-06-16] MEDS: Magnesium Oxide 400 MG Tab PO SCH (21:02)
[2024-06-16] MEDS: Sodium Chloride 0.9% 1,000 ML IV SCH (21:06)
[2024-06-16 21:15] LABS: ANION GAP 14.4 mmol/L (5.0-14.0); CALCIUM 8.3 mg/dL (8.5-10.1); CREATININE 0.7 mg/dL (0.8-1.3); EST CRCL DRUG DOSING (CG) 90.89 mL/min; MAGNESIUM 1.5 mg/dL (1.8-2.4); POTASSIUM,K 3.4 mmol/L (3.6-5.2)
[2024-06-16] MEDS: Potassium Chloride 20 MEQ Tab.ER PO ONE (21:38)
[2024-06-16] MEDS: Magnesium Sulfate/Water Premix 2 GM in Premix Bag 1 BAG IV ONE (21:38)
[2024-06-17 06:14] LABS: CREATININE 0.5 mg/dL (0.8-1.3); EST CRCL DRUG DOSING (CG) 132.09 mL/min; MAGNESIUM 1.7 mg/dL (1.8-2.4); POTASSIUM,K 3.5 mmol/L (3.6-5.2)
[2024-06-17 06:15] LABS: ANION GAP 11.5 mmol/L (5.0-14.0)
[2024-06-17] MEDS: Magnesium Sulfate/Water Premix 2 GM in Premix Bag 1 BAG IV SCH (09:25)
[2024-06-17] MEDS: Potassium Chloride 20 MEQ Tab.ER PO ONE ×2 (09:31→17:18)
[2024-06-17] MEDS: metFORMIN 500 MG Tab PO SCH (09:32)
[2024-06-17] MEDS ORDERED: Potassium Chloride 20 MEQ Tab.ER PO ONE (15:00)
[2024-06-17] MEDS: Insulin Glargine,Human Rec. Analog 100 Units/ML 3 ML Pen SUBCUT SCH (21:10)
[2024-06-18] MEDS: Insulin Glargine,Human Rec. Analog 100 Units/ML 3 ML Pen SUBCUT SCH (21:48)
[2024-06-21 11:50] LABS: BETA-HYDROXYBUTYRIC ACID 48.1 mg/dL (0.0-3.0)
== END 2024-06-19 09:38 | disposition home or self-care (01) | DRG 639 ==
LOC: JP.ED 14:23 → JP.MS 17:23
PROVIDERS: ADMIT Hospitalist; ATTEND Internal Medicine
PROC: 4A033R1 Measurement of Arterial Saturation, Peripheral, Percutaneous Approach (ICD-10-PCS; principal; 2024-06-16)
DX: E11.00 Type 2 diabetes mellitus with hyperosmolarity without nonketotic hyperglycemic-hyperosmolar coma (NKHHC) (principal); E83.42 Hypomagnesemia; E87.6 Hypokalemia; R63.4 Abnormal weight loss; Z79.84 Long term (current) use of oral hypoglycemic drugs; Z79.4 Long term (current) use of insulin; Z79.899 Other long term (current) drug therapy; Z86.16 Personal history of COVID-19; Z89.021 Acquired absence of right finger(s); Z87.891 Personal history of nicotine dependence; Z68.20 Body mass index [BMI] 20.0-20.9, adult
CPT/HCPCS: 36415; 36600; 80048; 80053; 81001; 82009; 82010; 82803; 82947; 83605; 83735; 84132; 85025; 99222; 99232; 99238; 99284; 99285; A9270-GY; J1650; J1815; J1815-GY; J3475; J7030

== ENCOUNTER 2024-10-28 12:28 | Emergency (ER) | payer OTHER ==
[2024-10-28 13:08] LABS: BICARBONATE,VENOUS 23.5 mmol/L; CARBOXYHEMOGLOBIN 1.8 % (0.0-1.6); METHEMOGLOBIN 1.6 %; O2 SATURATION VENOUS 57.6; OXYHEMOGLOBIN 55.6 %; PCO2 VENOUS 45.2 mm/Hg; PH,VENOUS 7.335 (7.350-7.450)
[2024-10-28 13:10] LABS: PO2 VENOUS 33.2 mm/Hg
[2024-10-28 13:37] LABS: A/G RATIO 0.7 (1.2-2.2); ALANINE AMINOTRANSFERASE,ALT 74 U/L (12-78); ALBUMIN 2.6 g/dL (3.4-5.0); ALKALINE PHOSPHATASE 313 U/L (46-116); ASPARTATE AMNIOTRANSFERASE,AST 33 U/L (15-37); BILIRUBIN TOTAL 0.5 mg/dL (0.2-1.0); BLOOD UREA NITROGEN,BUN 19 mg/dL (7-18); CALCIUM 8.9 mg/dL (8.5-10.1); CARBON DIOXIDE,CO2 24 mmol/L (21-32); CHLORIDE,CL 90 mmol/L (100-108); CREATININE 1.1 mg/dL (0.8-1.3); EST CRCL DRUG DOSING (CG) 55.64 mL/min; ESTIMATED GFR 85 mL/min (>60); POTASSIUM,K 4.7 mmol/L (3.6-5.2); PRO B-TYPE NATRIUR PEPT,BNPPRO 35 pg/mL (5-125); PROTEIN TOTAL,TP 6.2 g/dL (6.4-8.2); SODIUM,NA 127 mmol/L (140-148); TROPONIN I HIGH SENSITIVITY 5.4 pg/mL (<=60.3)
[2024-10-28 13:44] LABS: ANION GAP 17.7 mmol/L (5.0-14.0)
[2024-10-28 13:45] LABS: GLUCOSE RANDOM 864 mg/dL (74-106)
[2024-10-28] MEDS: Ondansetron 4 MG Tab.DIS PO ONE (13:48)
[2024-10-28] MEDS ORDERED: Sodium Chloride 0.9% 10 ML Syringe FLUSH PRN (13:50)
[2024-10-28] MEDS ORDERED: Glucagon,Human Recombinant 1 MG Vial IM PRN ×3 (13:55→17:13)
[2024-10-28] MEDS ORDERED: 50% Dextrose in Water 50 ML Syringe IVPUSH PRN ×3 (13:55→17:13)
[2024-10-28 14:04] LABS: APPEARANCE,URINE CLEAR (CLEAR); BILIRUBIN,URINE NEGATIVE (NEGATIVE); COLOR,URINE YELLOW (YELLOW); GLUCOSE,URINE 500 mg/dL (NEGATIVE); KETONES,URINE 80 mg/dL (NEGATIVE); LEUKOCYTE ESTERASE,URINE NEGATIVE (NEGATIVE); NITRITE,URINE NEGATIVE (NEGATIVE); OCCULT BLOOD,URINE NEGATIVE (NEGATIVE); PH,URINE 5.5 (5.0-8.0); PROTEIN,URINE NEGATIVE (NEGATIVE); UROBILINOGEN,URINE 0.2 EU/dL (0.2-1.0)
[2024-10-28] MEDS: Insulin Regular, Human 100 Units/ML 10 ML Vial IVPUSH ONE ×2 (14:13→15:43)
[2024-10-28 14:14] LABS: BACTERIA,URINE RARE; EPITHELIAL CELLS,URINE RARE; MUCUS,URINE NOT SEEN; RBC,URINE NOT SEEN (0-5); WBC,URINE NOT SEEN (0-5)
[2024-10-28] MEDS: Sodium Chloride 0.9% 1,000 ML IV ONE ×2 (14:16→15:50)
[2024-10-28] MEDS: metFORMIN 500 MG Tab PO ONE (14:40)
[2024-10-28] MEDS ORDERED: Insulin Glargine,Human Rec. Analog 100 Units/ML 3 ML Pen SUBCUT SCH (17:30)
== END 2024-10-28 17:47 | disposition home or self-care (01) ==
LOC: JP.ED 12:28
DX: E11.65 Type 2 diabetes mellitus with hyperglycemia (principal); Z86.16 Personal history of COVID-19
CPT/HCPCS: 36415; 71045; 80053; 81001; 82009; 82803; 82947; 83605; 83880; 84100; 84484; 93005; 96360; 96361; 99284; A9270; J1815; J7030; Q0162; 99283